=== PATIENT | male | born 1955 | race Caucasian/White ===

== ENCOUNTER → 2020-04-03 | Outpatient (CLI) | payer MEDICARE | LOC: LAB.O 10:16 | PROVIDERS: ATTEND Family Medicine | DX: R19.7 Diarrhea, unspecified (principal) ==

== ENCOUNTER → 2020-04-06 | Outpatient (CLI) | payer MEDICARE, OTHER ==
--- NOTE | 2020-04-06 14:23 | CT ---
EXAM DESCRIPTION: Abdomen/Pelvis w/wo Contrast: Computed Tomography. CLINICAL HISTORY: DIARRHEA UNSPEC. COMPARISON: None. TECHNIQUE: Spiral-axial scans at 5 x 5 mm intervals through the abdomen and pelvis before and after 75 mL Optiray 320 nonionic IV contrast. No oral contrast. Coronal and sagittal 2.0 mm reconstructions. 5 mm Delayed helical-axial scans, liver through the pubic symphysis. No adverse reactions. Total Exam DLP 4169 mGy - cm. This exam was performed according to our departmental CT dose-optimization program which includes automated exposure control, adjustment of the mA and/or kV according to patient size and/or use of iterative reconstruction technique; to reduce radiation dose to as low as reasonably achievable (ALARA). FINDINGS: Lung bases and pleura: Minimal nonspecific densities with no definite nodules, masses or infiltrates in the lung bases. Stent versus calcification in the right coronary artery. Liver, Stomach, Spleen, Adrenal Glands: Small gastric hiatal hernia. Long axis right lobe hepatic 20 cm. No focal lesions. Other solid organs are negative. Pancreas, Gallbladder, Ducts: Gallbladder visualized. Duct and pancreas negative. Kidneys and Ureters: 2 mm radiodense stone inferior collecting system right kidney and smaller stone in the upper collecting system. 4.1 mm stone inferior collecting system left kidney. Nonobstructive with no hydronephrosis. Multiple cysts in the left kidney largest measuring is 6.3 cm. No perirenal fluid. Ureters are negative. Mesentery: No free air or free fluid or inflammatory changes. Aorta: Minimal atherosclerotic changes. Small Bowel: Minimal gas and fluid with no air-fluid levels and no significant distention. Terminal Ileum/Cecum: Normal caliber. Small retrocecal appendix with no inflammatory changes. Colon: Gas and fecal matter. More distention gas and fecal matter in the sigmoid which is moderately redundant. No complications. Pelvic Organs: Prominent prostate gland impressing on the seminal vesicles and the base of the urinary bladder heterogeneous density and calcification measuring 5.2 x 4.7 x 3.8 cm. No free fluid. No radiodense stones in the urinary bladder. Spine and Bony Pelvis: Spondylosis L5-S1 with significant canal and foraminal narrowing bilaterally. Mild lumbosacral dextroscoliosis. Minimal spondylosis in the lower thoracic spine. Rudimentary S1-S2 disc. Minimal bony hypertrophy of the superior lateral acetabular margins bilaterally resulting in minimal femoral head over coverage. Abdominal Wall/Back Soft Tissues: Fatty hernia without bowel or other significant elements or complications in the right inguinal canal. IMPRESSION: 1. Enlarged liver and heterogeneous density which could indicate mild/borderline steatosis. No ascites. Small gastric hiatal hernia. 2. Multiple cysts in the bilateral kidneys largest inferior left kidney. Also bilateral nonobstructing kidney stones. Ureters are negative. 3. Moderate constipation distal colon. Prostate gland enlargement impressing on the base of the urinary bladder. Spondylosis L5-S1 with significant canal and bilateral foraminal narrowing. Correlate for radiculopathy. Mild bilateral femoral head over coverage by the acetabula which can be associated with femoral acetabular impingement. Fatty hernia right inguinal canal without complications. Electronically signed by: Raffi Chong MD 04/06/2020 2:18 PM CDT
== END ==
LOC: CT 09:22
PROVIDERS: ATTEND Family Medicine
DX: Z01.812 Encounter for preprocedural laboratory examination (principal); R19.7 Diarrhea, unspecified; K59.00 Constipation, unspecified; R16.0 Hepatomegaly, not elsewhere classified; K76.9 Liver disease, unspecified; K44.9 Diaphragmatic hernia without obstruction or gangrene; K40.90 Unilateral inguinal hernia, without obstruction or gangrene, not specified as recurrent; N28.1 Cyst of kidney, acquired; N20.0 Calculus of kidney; N40.0 Benign prostatic hyperplasia without lower urinary tract symptoms; M24.851 Other specific joint derangements of right hip, not elsewhere classified; M24.852 Other specific joint derangements of left hip, not elsewhere classified; M47.897 Other spondylosis, lumbosacral region

== ENCOUNTER 2020-05-13 05:13 | Day surgery (SDC) | payer MEDICARE, OTHER ==
[2020-05-13] MEDS ORDERED: LACTATED RINGERS 1,000 ML ONE (06:53)
[2020-05-13] MEDS ORDERED: PROPOFOL 200 MG/20 ML VIAL IV ONE ×2 (07:00)
[2020-05-13] MEDS ORDERED: LIDOCAINE 1% 10 ML VIAL INJ ONE ×2 (07:00)
[2020-05-13 09:24] VITALS: O2SAT 98
[2020-05-13 12:47] VITALS: BP 125/76; TEMP 97.4
--- NOTE | 2020-05-13 13:18 | OP ---
DATE OF PROCEDURE: 05/13/20 PREOPERATIVE DIAGNOSIS: 1. Change in bowel habits. 2. Bilateral lower quadrant pains. 3. Abnormal CT of the colon. POSTOPERATIVE DIAGNOSIS: 1. Two transverse colon polyps. 2. Sigmoid colitis. 3. Diverticulosis. 4. Internal hemorrhoids. PROCEDURE: 1. Colonoscopy plus polypectomy plus biopsy. SURGEON: Triston Goyal MD. COMPLICATIONS: None BLOOD LOSS: None. MEDICATIONS: Monitored anesthesia care. DESCRIPTION OF PROCEDURE: Informed consent was obtained prior to sedation. The preprocedure cardiopulmonary assessment was satisfactory. The patient was placed in the left lateral decubitus position and was sedated. A digital rectal exam was unremarkable. The tip of the Olympus colonoscope was inserted in the rectum and guided over to the cecum. The ileocecal valve was intubated and the distal terminal ileum was inspected. The ileum was unremarkable. The prep was good overall. There was some fluid scattered around that had to be suctioned away to allow for good visualization of the underlying mucosa. The mucosa of the cecum, ascending colon, hepatic flexure, transverse colon, splenic flexure, descending colon and sigmoid colon was closely examined. I had retroflexed in the right colon to allow a retroflexed view there. We examined the rectum with a direct and retroflexed view as well. The colon was significant for two 3-mm sessile polyps in the transverse colon. These were removed with a cold snare and recovered. The patient has a few scattered sigmoid diverticula. The patient also has some inflammatory changes involving the sigmoid colon. There is no significant ulceration, but there are areas of scattered edema and erythema with mucus and some punctate erosions. Biopsies were obtained with cold biopsy forceps to evaluate for colitis. The procedure also revealed internal hemorrhoids. The procedure was then terminated. RECOMMENDATIONS: 1. Followup the pathology. 2. Followup with Jude Pozo in [facility] in one to two weeks to review the pathology. Hopefully, there are findings on pathology that we can treat to relieve his diarrhea. 3. Followup colonoscopy interval to be determined when the polyp pathology results are reviewed. #[id number] cc: Ángel Mcknight MD [facility]
== END 2020-05-13 12:40 | disposition home or self-care (01) ==
LOC: AMB 05:13
PROVIDERS: ATTEND Internal Medicine Gastroenterology
DX: D12.3 Benign neoplasm of transverse colon (principal); K63.5 Polyp of colon; K52.9 Noninfective gastroenteritis and colitis, unspecified; K57.30 Diverticulosis of large intestine without perforation or abscess without bleeding; K64.8 Other hemorrhoids; I10 Essential (primary) hypertension; I25.10 Atherosclerotic heart disease of native coronary artery without angina pectoris; E78.00 Pure hypercholesterolemia, unspecified; E66.9 Obesity, unspecified; Z80.0 Family history of malignant neoplasm of digestive organs; Z79.899 Other long term (current) drug therapy; Z79.82 Long term (current) use of aspirin; Z95.1 Presence of aortocoronary bypass graft; Z95.5 Presence of coronary angioplasty implant and graft; Z68.30 Body mass index [BMI] 30.0-30.9, adult
CPT/HCPCS: 00811; 45380; 45385; 88305; J3490; J7120

== ENCOUNTER → 2020-07-08 | Outpatient (CLI) | payer MEDICARE, OTHER ==
--- NOTE | 2020-07-09 12:36 | MRI ---
Study: MRI of the Right Knee. Indication: PAIN Technique: Multiplanar, multi sequence MRI of the right knee was obtained without intravenous contrast. Comparison: None. Findings: Acute grade 2 proximal MCL sprain with partial thickness tearing of the femoral origin of the ligament. The ligament is bowed and lax with surrounding edema. No prolapse. Meniscal capsular separation present. ACL, PCL, and lateral collateral ligament complex intact. Prominent oblique undersurface tear posterior horn and body medial meniscus. Subtle areas of grade 3 and 4 chondral loss throughout the medial compartment with cortical remodeling and subchondral marrow change of the medial margin of the medial tibial plateau and grade 4 chondral delamination of the central aspect medial femoral condyle. Irregular free edge tearing body lateral meniscus with 2 mm extrusion. Areas of grade 2 and 3 chondrosis throughout the lateral compartment. Tenodesis and mild interstitial fissuring of the quadriceps tendon insertion. Patellar tendon intact. Trace lateral patellar subluxation. TT-TG distance measures 20 mm. Patchy areas of grade 4 chondrosis, cortical remodeling, and subchondral marrow change throughout the patella, most pronounced at the lateral facet and apex inferiorly. Moderate size knee effusion. No acute fracture. Impression: Acute grade 2 proximal MCL sprain. Prominent oblique undersurface tear posterior horn and body medial meniscus with irregular free edge tearing body lateral meniscus. 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 Moderate size knee effusion. Additional findings as above. Electronically signed by: Sina Mayo MD 07/09/2020 12:35 PM CDT
== END ==
LOC: MRI 11:00
PROVIDERS: ATTEND Family Medicine
DX: S83.411A Sprain of medial collateral ligament of right knee, initial encounter (principal); S83.241A Other tear of medial meniscus, current injury, right knee, initial encounter; M25.461 Effusion, right knee; M22.41 Chondromalacia patellae, right knee

== ENCOUNTER 2020-08-17 17:08 | Emergency (ER) | payer MEDICARE, OTHER ==
--- NOTE | 2020-08-17 17:11 | ED.PDOC ---
History of Present Illness - General Time Seen by Provider: 08/17/20 17:10 - History of Present Illness Initial Comments: 64 yo male was fishing when he tripped and fell forward onto an embankment. no loc. is on aspirin. denies any other injuries besides cut to nose and forehe ad. unsure when last tetanus, came in because he wasn't sure if he needed sutures. no pain with ambulation, no back pain. no change in vision, no n/v/d Allergies/Adverse Reactions: Allergies NO KNOWN ALLERGY Allergy (Verified 05/11/20 13:51) Home Medications: Ambulatory Orders Rosuvastatin Calcium [Crestor] 40 mg PO BEDTIME 05/11/20 Review of Systems - Review of Systems Constitutional: Denies: chills, fever, weakness EENTM: Denies: eye pain, blurred vision, double vision, ear pain, ear discharge, nose pain, nose congestion, throat pain, throat swelling, mouth pain, mouth swelling Respiratory: Denies: cough, short of breath Cardiology: Denies: chest pain, palpitations, syncope Gastrointestinal/Abdominal: Denies: abdominal pain, diarrhea, nausea, vomiting Genitourinary: Denies: dysuria, frequency Musculoskeletal: Denies: back pain, joint pain, joint swelling, muscle pain, muscle stiffness Skin: States: see HPI Neurological: Denies: headache, numbness, paresthesia, seizure, tingling, tremors, weakness Endocrine: Denies: unexplained weight gain, unexplained weight loss Hematologic/Lymphatic: Denies: blood clots, easy bleeding, easy bruising Past Medical History (General) - Patient Medical History Hx Congestive Heart Failure: No Hx Diabetes: No Hx MRSA: No Physical Exam - Physical Exam General Appearance: Alert, Comfortable, No apparent distress Head Injury: other - no jung sign or raccon eyes, star laceration noted on fo rehead aprx 3 cm in diameter. 1 cm laceration across bridge of nose. Eye Exam: bilateral normal ENT Exam: hearing grossly normal, no evidence of ENT injury, no dental injury - no hemotypmanium, no septal hematoma. Peripheral Pulses: radial,right: 2+, radial,left: 2+, dorsalis pedis,right: 2+, dorsalis pedis,left: 2+, posterior tibialis,right: 2+, posterior tibialis,left: 2+ Cardiovascular/Respiratory: regular rate, rhythm, no M/R/G, normal peripheral pulses, no JVD, normal breath sounds, no respiratory distress Gastrointestinal/Abdominal: normal bowel sounds, non tender, soft, no organomegaly, no pulsatile mass Back Exam: normal inspection, no CVA tenderness, no vertebral tenderness Extremity Exam: no evidence of injury, normal range of motion, non-tender, no pedal edema, pelvis stable, other - stable gait Neurologic: area development manager II-XII nml as tested, no motor/sensory deficits, alert, normal mood/affect, oriented x 3 Skin Exam: normal color, warm/dry - Dougherty Coma Score Best Eye Response (Ovi): (4) open spontaneously Best Verbal Response (Ovi): (5) oriented Best Motor Response (Dougherty): (6) obeys commands Progress - Progress Progress: 08/18/20 00:36 Partial ddx: ICH, concussion, nasal fracture. Tdap updated. he declined anything for pain. CT head negative for acute pathology. Wound was clened with 500 ml saline. The forehead wound was then approximated with steri-strips. The nose laceration was glued together. patient tolerated well. wound care instructions provided. The data reviewed when caring for this patient included: nurse notes, prior records, etc. The history and assessments from nurses notes were reviewed and considered, and the patient's home medication list was also reviewed and considered. My assessment and the results of testing completed here in the ED were discussed with the patient. All questions were answered, and he express understanding of my assessment and the plan. He has been instructed to return if their symptoms worsen, and have been asked to follow up with his primary care physician to recheck today's presenting complaint. return precautions given. Patient discharged home in stable condition. Reina Shearer DO #[id number] 08/18/20 00:45 Departure - Departure Clinical Impression: Laceration Fall Qualifiers: Encounter type: initial encounter Qualified Code(s): W19.XXXA - Unspecified fall, initial encounter ICD-10 Supporting Text: Laceration, face, nose Time of Disposition: 18:14 Disposition: Discharge to Home or Self Care Departure Forms: ED Discharge - Pt. Copy, Patient Portal Self Enrollment Instructions: Laceration Repair With Glue (DC), Preventing Falls Activity: increase activity as tolerated Referrals: Ángel Mcknight MD [Primary Care Provider] - 1-2 Days Home Medications: Ambulatory Orders Rosuvastatin Calcium [Crestor] 40 mg PO BEDTIME 05/11/20
[2020-08-17] MEDS ORDERED: TETANUS,DIPHTHERIA,PERTUSSIS 1 EA SYG IM ONE (17:21)
--- NOTE | 2020-08-17 18:14 | CT ---
EXAM DESCRIPTION: CT head without contrast CLINICAL HISTORY: fall COMPARISON: None available TECHNIQUE: Noncontrast head CT was performed with routine protocol. FINDINGS: Normal posadas-white matter differentiation. Ventricles and sulci are normal for age. No high density hemorrhage, focal edema or shift of the midline. No sulcal effacement. Normal orbital contents. Basilar cisterns appear clear. Intact calvarium with no fracture or lytic lesion. Normal aeration of tympanic cavities and mastoid air cells. No fluid levels in the paranasal sinuses. Skull base appears intact. Symmetrical internal auditory canals. IMPRESSION: No acute intracranial pathologic process. This exam was performed according to our departmental dose-optimization program, which includes automated exposure control, adjustment of the mA and/or kV according to patient size and/or use of iterative reconstruction technique. Total DLP equals 967.47 mGycm. Electronically signed by: Prosper Yun MD 08/17/2020 6:13 PM CDT
[2020-08-17 18:54] VITALS: BP 145/94; TEMP 97.6; O2SAT 99
== END 2020-08-17 18:45 | disposition home or self-care (01) ==
LOC: ER 17:08
DX: S01.21XA Laceration without foreign body of nose, initial encounter (principal); S01.81XA Laceration without foreign body of other part of head, initial encounter; Y93.89 Activity, other specified; W01.0XXA Fall on same level from slipping, tripping and stumbling without subsequent striking against object, initial encounter; Y92.89 Other specified places as the place of occurrence of the external cause